=== PATIENT | male | born 1995 | race American Indian/Alaskan Native ===

== ENCOUNTER 2016-04-15 15:23 | Emergency (ER) | payer SELFPAY ==
[2016-04-15 16:17] VITALS: BP 146/88
== END 2016-04-15 22:38 | disposition left against medical advice (07) ==
LOC: ED 15:23
DX: R07.0 Pain in throat (principal); R51 Headache; Z53.21 Procedure and treatment not carried out due to patient leaving prior to being seen by health care provider

== ENCOUNTER 2016-10-04 01:06 | Emergency (ER) | payer SELFPAY ==
[2016-10-04 02:01] VITALS: BP 118/83
--- NOTE | 2016-10-04 04:27 | Emergency Department Report ---
HPI - General Chief Complaint: Dental/Oral Time Seen by Provider: 10/04/16 04:06 - [facility] HPI: The patient is a 21-year-old male who presents to ED complaining of dental pain intermittently for the past couple months. Patient states a couple of days ago he felt like he saw an abscess on his frontal gum's. Patient states he had a yellowish substance, but has not resolved. Patient states this pain initially began since March when he had some feelings of the dentist. She also states that he will likely get HIV testing done Patient describes a as a throbbing, pressure-like sensation. Patient states otherwise well and has no other complaints. Patient has had no fevers and no chills. No chest pain, no shortness of breath. No abdominal pain. No shortness of breath or recent trauma to the face. ED Past Medical Hx - Past Medical History Previous Medical History?: No Additional medical history: sore throat - Surgical History Past Surgical History?: No - Social History Smoking Status: Never Smoker Substance Use Type: None - Medications Home Medications: Home Medications Medication Instructions Recorded Confirmed Last Taken Type Loratadine [Claritin] 10 mg PO DAILY #30 tablet 06/02/15 Unknown Rx Prednisone [predniSONE 10 mg 10 mg PO .TAPER #1 tab.ds.pk 06/02/15 Unknown Rx (6-Day Pack, 21 Tabs)] Clindamycin [Clindamycin CAP] 150 mg PO TID #21 capsule 10/04/16 Unknown Rx Ibuprofen [Motrin 600 MG tab] 600 mg PO Q8H PRN #30 tablet 10/04/16 Unknown Rx ED Review of Systems ROS: Stated complaint: TOOTHACHE Other details as noted in HPI Constitutional: denies: chills, fever Eyes: denies: eye pain, eye discharge, vision change ENT: dental pain. denies: ear pain, throat pain Respiratory: denies: cough, shortness of breath, wheezing Cardiovascular: denies: chest pain, palpitations Endocrine: no symptoms reported Gastrointestinal: denies: abdominal pain, nausea, diarrhea Genitourinary: denies: urgency, dysuria Musculoskeletal: denies: back pain, joint swelling, arthralgia Skin: denies: rash, lesions Neurological: denies: headache, weakness, paresthesias Psychiatric: denies: anxiety, depression Hematological/Lymphatic: denies: easy bleeding, easy bruising Physical Exam - Physical Exam Vital Signs: Vital Signs 10/04/16 01:58 Temperature 97.9 F Pulse Rate 104 H Respiratory 18 Rate Blood Pressure 118/83 [Right] O2 Sat by Pulse 100 Oximetry Physical Exam: GENERAL: Alert and oriented x3, no apparent distress, Normal Gait, atraumatic. MOUTH:Mouth is well hydrated and without lesions. Tonsils nonerythematous or swollen, Uvula midline, Tongue not elevated. Mucous membranes are moist. Posterior pharynx clear, no exudate or lesions. Patent airways. Comes nontender to palpation, no gingival enlargement seen. No bleeding visualized NECK: Supple. Non edematous, No lymphadenopathy or thyromegaly. No C-spine tenderness LUNGS: Symetrical with respiration, No wheezing, no rales or crackles, CTAB. HEART: S1, S2 present, regular rate and rhythm without murmur, no rubs, no gallops. Non tender to palpation SKIN: Warm and dry, No lesions, No ulceration or induration present. ED Course Vital Signs 10/04/16 01:58 Temperature 97.9 F Pulse Rate 104 H Respiratory 18 Rate Blood Pressure 118/83 [Right] O2 Sat by Pulse 100 Oximetry ED Medical Decision Making - Medical Decision Making 21-year-old male who presents with frontal tooth pain ED course Odontogenic infection Based upon history and physical examination, he has no evidence of acute impending airway compromise. At this point, patient will be discharged home on some antibiotics and pain trial, she will do well with an outpatient course of antibiotics. Follow up with the Dental Clinic as referred Vital signs are normal patient has no acute distress Discussed the patient is avid tennis and has not done routinely in the ED and will have to go to the health department or primary care physician to have that done + discussed patient will have referrals today for health department and places to have STD testing Critical care attestation.: If time is entered above; I have spent that time in minutes in the direct care of this critically ill patient, excluding procedure time. ED Disposition Clinical Impression: Pain, dental Disposition: [id number] TO HOME OR SELFCARE Is pt being admited?: No Does the pt Need Aspirin: No Condition: Stable Instructions: Toothache (ED), Dental Caries (ED) Prescriptions: Clindamycin [Clindamycin CAP] 150 mg PO TID #21 capsule Ibuprofen [Motrin 600 MG tab] 600 mg PO Q8H PRN #30 tablet PRN Reason: Pain Referrals: PRIMARY CARE, [Primary Care Provider] - 3-5 Days [facility] [Outside] - 3-5 Days [facility] [Outside] - 3-5 Days [facility] [Outside] - 3-5 Days [facility] [Outside] - 3-5 Days [facility] [Outside] - 3-[address] [facility] [Outside] - 3-5 Days Forms: Work/School Release Form(ED) Time of Disposition: 04:30
== END 2016-10-04 04:51 | disposition home or self-care (01) ==
LOC: ED 01:06
DX: K08.89 Other specified disorders of teeth and supporting structures (principal)
CPT/HCPCS: 99282